=== PATIENT | male | born 1950 | race Caucasian/White ===

== ENCOUNTER 2023-07-31 16:57 | Emergency (ER) | payer OTHER ==
[~2023-07-31] VITALS: Ht 177.8 cm; Wt 81.6 kg
[2023-07-31] MEDS ORDERED: CEPH-588 PO (17:02)
[2023-07-31 17:11] VITALS: BP 130/74; PULSE 84; RESP 16; TEMP 97.7; O2SAT 99
[2023-07-31 18:01] VITALS: BP 130/74; PULSE 84; RESP 16; TEMP 97.7; O2SAT 99
== END 2023-07-31 18:01 | disposition home or self-care (01) ==
LOC: MED 16:57
DX: L03.115 Cellulitis of right lower limb (principal); F03.90 Unspecified dementia, unspecified severity, without behavioral disturbance, psychotic disturbance, mood disturbance, and anxiety; Z79.2 Long term (current) use of antibiotics
CPT/HCPCS: 99283